=== PATIENT | female | born 1980 | race Caucasian/White ===

== ENCOUNTER 2018-04-29 13:48 | Inpatient (IN) | payer OTHER ==
[2018-04-29] MEDS ORDERED: Lactated Ringer's 1,000 ML IV ONE ×2 (14:07→22:33)
[2018-04-29 14:10] VITALS: BMI 27.4
[2018-04-29] MEDS ORDERED: Lactated Ringer's 1,000 ML IV SCH (14:15)
[2018-04-29 15:12] LABS: BASO # 0.1 K/uL (0.0-0.2); BASO % 0.3 % (0.0-2.0); HEMOGLOBIN 13.8 g/dL (12.0-16.0); LYMPH % 4.5 % (20.0-40.0); MEAN CELL VOLUME 89.9 fl (81.0-99.0); MEAN CORPUSCULAR HEMOGLOBIN 29.6 pg (27.0-31.0); MEAN PLATELET VOLUME 11.3 fl (7.2-11.7); MONO % 4.3 % (0.0-10.0); NEUT # 20.7 K/uL (1.8-7.0); NEUT % 90.9 % (50.0-75.0); PLATELET COUNT 217 K/uL (130-400); RBC 4.66 Mil/uL (3.80-5.20); RED CELL DISTRIBUTION WIDTH 14.1 % (11.5-14.5); WHITE BLOOD COUNT 22.8 K/uL (4.8-10.8)
[2018-04-29] MEDS ORDERED: Oxytocin 30 UNIT 30 UNITS/500 ML BAG IV ONE ×3 (15:52→15:55)
[2018-04-29 15:58] LABS: BANDS 4 % (0-2); LYMPHOCYTE 4 % (20-50); MONOCYTE 6 % (0-10); NEUTROPHIL 86 % (42-75); PLATELET ESTIMATE NORMAL (NORMAL); TOTAL CELLS COUNTED 100
[2018-04-29] MEDS ORDERED: OXYTOCIN/0.9 % NS 20 UNIT/1,000 ML BAG IV SCH ×2 (16:00→18:15)
--- NOTE | 2018-04-29 16:17 | OBADHP ---
Datetime: 04/29/2018 15:45 Presentation-Admit: Vertex FHR - Baseline A Provider: 130 Contraction Comments Provider: 2-5m (external monitor) - q3min (clinically) NICHD Variability Prov Fetus A: Moderate 6-25bpm NICHD Accel Fetus A IP Provider: 15X15 FHR Category Provider Fetus A: Category I NICHD Decel Fetus A IP Provider: None Dilatation, Provider: 6 Effacement, Provider: 75 Station, Provider: -2 Datetime: 04/29/2018 14:00 Admit Comment, IP Provider: 37yo IUP at 41w acc to her OB provider (industrial relations commissioner). She was rboug ht in by industrial relations commissioner who could not make it out to [facility] due to weather. Pt feels CTX selene n. She started with CTX at 4am on Apr 29. Acc to industrial relations commissioner, she was 44-5cm yesterday at 3pm. She progr essed to 7cm when she was checked at 9:17am with SROM and had thick meconium. When she came at 2pm. she c/o CTX pain but diesn't want pain meds (but considering Nitrous oxide) PMH: denies PSH: denies NKA PSoH denies smoking ETOH drugs POBGYNH: Deneis STD ; A: IUP at 41w active laboe of labor ?prolonged active phase PLAN: discussoin with pt, , support person,. and industrial relations commissioner about condition, labor, pain manag ement options, augmentiona, delivery and . Their questoins answered...will start IV, observe labor progress. Pelvic Type - PN: Adequate Extremities - PN: Normal Abdomen - PN: Normal Back - PN: Normal Breast - PN: Not Done Lungs - PN: Normal Heart - PN: Normal Thyroid - PN: Normal Neurologic - PN: Normal HEENT - PN: Normal General - PN: Normal IP Fetus A Comments: Sonogram ceph Membranes, Provider: Raji Carroll, ACOG Physical Exam: SVE 6cm - no fluid noted Pool Provider: Negative IP Hx Assessment: The History has been Reviewed and is Current Vital Signs Provider: Reviewed; Within Normal Limits IP Chief Complaint: Uterine contractions Genitourinary Exam: Normal DTRs - PN: Normal IP Adm Impression: Term, intrauterine ; Active labor; Ruptured Membranes IP Admit Plan: Admit to unit; Initiate labor protocol
[2018-04-29] MEDS ORDERED: Fentanyl/Bupivacaine HCl 250 ML EPI ONE (16:50)
[2018-04-29] MEDS ORDERED: ceFAZolin 2 GM in Sodium Chloride 0.9% 100 ML IVPB ONE (18:15)
--- NOTE | 2018-04-29 18:26 | OBPN ---
Datetime: 04/29/2018 18:15 IP Informed Consent Obtain: Vaginal Delivery; Risks, Benefits and Alternatives Discussed IP Progress Plan: Deliver- Section IP Progress Note Comment: Notified about prolonged deceleration 5min to 70-80's...SVE no change... Pt placed on hands/knees-- recovered. A; Failure of dilation/meconium PLAN: Condition explaioned to pt and her . She understood. Her questions answered. prep f or section Datetime: 04/29/2018 18:05 IP Progress Impression: Reassuring heart rate IP Procedures: Sterile Vag Exam Contraction Comments Provider: q3-5m FHR - Baseline A Provider: 125 NICHD Accel Fetus A IP Provider: 15X15 FHR Category Provider Fetus A: Category I NICHD Variability Prov Fetus A: Moderate 6-25bpm Dilatation, Provider: 6 Effacement, Provider: 80 Station, Provider: -2 NICHD Decel Fetus A IP Provider: None Datetime: 04/29/2018 15:45 Presentation-Admit: Vertex Datetime: 04/29/2018 14:00 Pool Provider: Negative Membranes, Provider: Ruptured IP Fetus A Comments: Sonogram cep Vital Signs Provider: Reviewed; Within Normal Limits
[2018-04-29] MEDS ORDERED: Morphine 1 mg/ml preservative-free Inj(Duramorph) ONE (18:30)
[2018-04-29] MEDS ORDERED: Lidocaine 2% PF (10 ml) Amp ONE ×2 (18:31→18:32)
[2018-04-29] MEDS ORDERED: Naloxone 0.4 mg/ml Inj (Adult) IVP PRN ×2 (19:13→22:33)
[2018-04-29] MEDS ORDERED: Cellulose Hemostat 2X3 Sheet ONE (19:16)
[2018-04-29] MEDS ORDERED: Acetaminophen-Codeine 300/30 mg Tab PO PRN ×2 (19:51→22:33)
[2018-04-29] MEDS ORDERED: Oxycodone/Acetaminophen 5/325 mg Tab PO PRN ×2 (19:51→22:33)
[2018-04-29] MEDS ORDERED: Simethicone 80 mg Chewtab PO SCH (22:00)
[2018-04-29] MEDS ORDERED: Morphine 4 MG/ML VIAL IV PRN (22:33)
[2018-04-30] MEDS: Simethicone 80 mg Chewtab PO SCH ×5 (04:00→22:47)
[2018-04-30 06:40] LABS: HEMOGLOBIN 11.1 g/dL (12.0-16.0); MEAN CELL VOLUME 90.5 fl (81.0-99.0); MEAN CORPUSCULAR HEMOGLOBIN 30.3 pg (27.0-31.0); MEAN CORPUSCULAR HGB CONC 33.5 g/dL (33.0-37.0); RBC 3.66 Mil/uL (3.80-5.20); RED CELL DISTRIBUTION WIDTH 13.6 % (11.5-14.5); WHITE BLOOD COUNT 14.9 K/uL (4.8-10.8)
--- NOTE | 2018-04-30 07:51 | OBDS ---
DELIVERY PERSONNEL Delivery Doctor: Tiffanie Gomez DO Rail Car Unloader: Dusty Peguero RN / Du Hills RN Anesthesiologist: Dano Vegas MD Resident: Saad King MD MATERNAL INFORMATION Delivery Anesthesia: Spinal Medications in Delivery: ancef 2 grams, pitocin 20 units/1000ml Placenta Cultured: No Maternal Complications: None Provider Comments: Pre Op Dx Term preg; failure to dilate/thick meconium Post Op Dx same Procedure: primary LTCS via Pfannenstiel incision Surgeon Dr Gomez Asst Dr Mckeon Shaheed - OB fellow Anesth: Dr Vegas Anesth : epidural FIndings: -live infant delivered from cephalic presentation -moderate meconuim - crying spontaneously - 9,9 -placenta delivreed intact spontaneously -ovaries and tubes WNL grossly -multiple small fibroids noted -She remained stable -all equipment sponges and needles accounted for -EBL 800cc LABOR SUMMARY EDC: 04/22/2018 00:00 No. Babies in Womb: 1 Attempted: No Labor Anesthesia: Intrathecal LABOR INFORMATION Reason for Induction: Not Applicable Onset of Labor: 04/29/2018 13:40 Oxytocin: N/A Group B Beta Strep: Negative Antibiotics # of Doses: 1 Antibiotics Time of Last Dose: 1847 Steroids Given: None Reason Steroids Not Administered: Not Applicable MEMBRANES Membranes Rupture Method: Spontaneous Rupture of Membranes: 04/29/2018 09:17 Length of Rupture (hrs): 9.70 Amniotic Fluid Color: Light Meconium Amniotic Fluid Amount: Small (Annotations: as per Jolly, CM) Amniotic Fluid Odor: None STAGES OF LABOR Stage 3 hrs: 0 Stage 3 min: 1 Total Time in Labor hrs: 5 Total Time in Labor min: 20 CSECTION DELIVERY Primary Indication: Failure of Descent Secondary Indication: Arrest of Descent CSection Urgency: Non Elective CSection Incidence: Primary Labor: Labor Elective: Nonelective CSection Incision: Lower Uterine Transverse Uterine Closure: Double-layer closure BABY A INFORMATION Infant Delivery Date/Time: 04/29/2018 18:59 Method of Delivery: Born in Route : No : N/A Forceps: N/A Vacuum Extraction: N/A Shoulder Dystocia : No SHOULDER DYSTOCIA BABY A Delivery Date/Time: 04/29/2018 18:59 PRESENTATION/POSITION BABY A Presentation: Cephalic Cephalic Presentation: Vertex Breech Presentation: N/A PLACENTA INFORMATION BABY A Placenta Delivery Time : 04/29/2018 19:00 Placenta Method of Delivery: Spontaneous Placenta Status: Delivered SCORES BABY A Heart Rate 1 min: >100 bpm Resp Effort 1 min: Good Cry Reflex Irritability 1 min: Cough or Sneeze or Pulls Away Muscle Tone 1 min: Active Motion Color 1 min: Body [place], Extremities Blue Resuscitation Effort 1 min: Tactile Stimulation SCORE 1 MIN: 9 Heart Rate 5 min: >100 bpm Resp Effort 5 min: Good Cry Reflex Irritability 5 min: Cough or Sneeze or Pulls Away Muscle Tone 5 min: Active Motion Color 5 min: Body [place], Extremities Blue Resuscitation Effort 5 min: N/A; Tactile Stimulation SCORE 5 MIN: 9 INFORMATION BABY A Gestational Age at Delivery: 41.0 Gestational Status: Post-term Infant Outcome : Liveborn Condition : Stable Sex: Male IDENTIFICATION/MEDS BABY A ID Band Number: [id number] ID Band Location: Left Leg; Left Arm WEIGHT/LENGTH BABY A Infant Birthweight (gms): 3645 Weight (lb): 8 Infant Weight (oz): 1 CORD INFORMATION BABY A No. Cord Vessels: 3 Nuchal Cord : N/A Cord Blood Taken: Yes Suction: Mouth; Nose ASSESSMENT BABY A Infant Complications: None Physical Findings at Delivery: Within Normal Limits; [place] Spots Infant Respirations: Appears Normal Bass Fisher/ALS Called : No Care By: Sofia Michael RN Transferred To: Remains with Mother
[2018-04-30] MEDS ORDERED: Multivitamin With Minerals Tab PO SCH (09:00)
[2018-04-30] MEDS: Multivitamin With Minerals Tab PO SCH (14:48)
[2018-05-01] MEDS: Simethicone 80 mg Chewtab PO SCH ×3 (05:08→22:05)
[2018-05-01] MEDS: Multivitamin With Minerals Tab PO SCH (08:09)
--- NOTE | 2018-05-01 14:57 | OBPPN ---
Datetime: 05/01/2018 05:47 PP Pain Prov: Within normal limits PP Nausea Prov: Denies PP Flatus Prov: Yes PP BM Prov: No PP Breasts Prov: Normal PP Heart Prov: Normal PP Lungs Prov: Normal PP Abdomen/Uterus Prov: Normal PP Lochia Prov: Normal PP Vulva/Perineum Prov: Not Done PP CVA Tenderness Prov: Not Done PP Extremities Prov: Normal PP Impression Prov: Normal progression PP Plan Prov: Continue present management PP Progress Note Prov: POD 2 S: 37 yo s/p C-sec on 04/29/18, POD2. No overnight events. Pain tolerated with medication. Ambulating without dizziness/ lightheadedness/palpatations. Exclusively . Lochia < mens es. -flatus/- BM. Denies fever/chills, diarrhea, nausea/vomiting, chest pain, dyspnea, and dizziness. Tolerating regular diet. O: VS: stable GEN: NAD Cardio: S1S2, no murmurs Lungs: clear breath sounds b/l, no wheezing Abdomen: BS+, appropriate tenderness to palpation. Incision not visualized, dressing intact dry an d clean. Uterus is firm and at the level of the umbilicus. Appropriate tenderness EXT: No edema, calves non-tender NEURO/PSYCH: AAOx3, no grossly focal deficits, preserved affect and mood. H/H: aCBC 13.8/41.9 pCBC: 11.1/33.1 Assessment/Plan: 37 yo s/p C-sec on 04/29/18, POD2. Pt remains afebrile, tolerating pain w ith medication. -Anticipating discharge 05/02 - Motrin 600mg po q6, Toradol 30mg Q6 (max 1 dose), Morphine 4mg Q3 (max 2 doses) for pain as per pain scale - Mylicon 80mg Q6H -Encourage and ambulation Case discussed with Dr Zeke King PGY1 Attending addendum: I saw and examined the patient at bedside myself. I reviewed the resident note above and agree wit h findings and management. Anticipate DC home tomorrow. Berta Babcock MD IP PP Procedures: None Vital Signs Provider PP: Reviewed; Within Normal Limits Datetime: 04/30/2018 06:11 PP C/S Incision Prov: Normal PP Progress Prov: Normal
[2018-05-02] MEDS: Simethicone 80 mg Chewtab PO SCH ×2 (04:03→09:01)
--- NOTE | 2018-05-02 10:09 | OP ---
PROCEDURE DATE: 04/29/2018 PREOPERATIVE DIAGNOSES: Intrauterine at term gestation, failure to dilate, thick meconium. POSTOPERATIVE DIAGNOSES: Intrauterine at term gestation, failure to dilate, thick meconium. PROCEDURE: Primary low-transverse section via Pfannenstiel incision. SURGEON: Bienvenido Gomez DO CONSERVATION SCIENCE OFFICER: Dr. Gabrielle Gerber, OB fellow ANESTHESIOLOGIST: Simin Vegas MD ANESTHESIA: Epidural. OPERATIVE FINDINGS: Live delivered from a cephalic presentation. Moderate meconium noted. Infant was crying spontaneously. scores of 9 and 9 given at one and five minutes respectively. Placenta was delivered intact spontaneously. Ovaries and tubes appeared to be within normal limits grossly. Multiple small fibroids were noted on the anterior and posterior ruffin of the uterus; two of them pedunculated anteriorly. She remained hemodynamically stable throughout the procedure. All equipments, sponges and needles accounted for. ESTIMATED BLOOD LOSS: 800 mL. DESCRIPTION OF PROCEDURE: The patient was brought to the operating room. She already had an epidural catheter in place. The catheter was placed in the bladder and noted to be draining clear urine. Compression boots were placed on both lower extremities. She was placed in supine position. She was then draped and prepped in the usual sterile manner. Once adequate anesthesia was obtained, a Pfannenstiel incision was made using a scalpel. Upon identifying the peritoneum, this was nicked in the midline using a scalpel. The incision was then extended bilaterally using curved Vinson Scissors. Inferior aspect of the fascia was grasped using two Christian clamps, tented up and the rectus muscle was both bluntly and sharply dissected using the curved Vinson scissors. The same was done with the superior aspect of the fascia in the midline superiorly. The rectus muscle was bluntly. Peritoneum was then entered bluntly. The incision was then extended superiorly and inferiorly with direct visualization of bladder and intestines. A bladder blade was then inserted. A bladder flap was created by incising peritoneum on the uterus above the bladder line and then extending bilaterally using Metzenbaum scissors. The bladder flap was created digitally. A low-transverse incision was made using the scalpel. Upon entering the uterus, moderate meconium was noted. This incision was then extended bilaterally using bandage scissors . The 's head was delivered as atraumatically as possible. The remainder of the infant then was delivered as atraumatically as possible. Loose cord was noted around the body. Infant was crying spontaneously and handed to the urology surgeon in attendance. Cord bloods were obtained. Placenta was delivered intact spontaneously. Uterus was then exteriorized and cleared of debris and clots. Multiple small fibroids were noted. There were two pedunculated fibroids noted in the anterior part of the uterus. The lower uterine segment was identified intact using two Allis clamps and two T clamps. Good contracture of the uterus was noted. An 0 Vicryl suture was used to close the first layer of the uterus in an interlocking fashion. Second layer of the uterus was closed using 0 Vicryl suture imbricating the first layer. Good hemostasis was assured. The pedunculated fibroids were noted to have some bleeding. Hemostasis was assured using electrocautery as well as Surgicel which was placed in the area. The uterus was placed back into the peritoneal cavity gently. The lower uterine segment was noted to have good hemostasis. Fibroids were noted to have hemostasis. All equipments were removed and accounted for. An 0 Vicryl suture was used to approximate the peritoneum in a running fashion. Rectus muscle was noted to have good hemostasis and was approximated in the midline using a running 0 Vicryl suture. An 0 Vicryl suture was used to close that fascial layer in a running fashion. Irrigation was performed. Hemostasis was assured using electrocautery. A 3-0 Vicryl suture was used to approximate the skin. Dermabond, Steri-Strips and pressure bandages were applied. She tolerated the procedure well and was transferred to the recovery room in stable condition. All equipments, sponges and needles accounted for. Suleman Gomez DO
--- NOTE | 2018-05-02 11:08 | OBPPN ---
Datetime: 05/02/2018 06:23 PP Pain Prov: Within normal limits PP Nausea Prov: Denies PP Flatus Prov: Yes PP BM Prov: Yes PP Breasts Prov: Not Done PP Heart Prov: Normal PP Lungs Prov: Normal PP Abdomen/Uterus Prov: Normal PP Lochia Prov: Normal PP Vulva/Perineum Prov: Normal PP CVA Tenderness Prov: Normal PP Extremities Prov: Normal PP C/S Incision Prov: Not Applicable PP Progress Prov: Normal PP Impression Prov: Normal progression PP Plan Prov: Continue present management PP Progress Note Prov: POD 3 S: 37 yo s/p C-sec on 04/29/18, POD3. No overnight events. Pain tolerated with medication. Ambulating without dizziness/ lightheadedness/palpitations. and bottle feeding. Lochia < menses. + flatus/ + BM. Admits to left hip/lower extremity pain when walking but denies fever/chil ls, diarrhea, nausea/vomiting, chest pain, dyspnea, and dizziness. Tolerating regular diet. O: VS: stable GEN: NAD Cardio: S1S2, no murmurs Lungs: clear breath sounds b/l, no wheezing Abdomen: BS+, appropriate tenderness to palpation. Incision not visualized, dressing intact dry an d clean. Uterus is firm and at the level of the umbilicus. Appropriate tenderness EXT: No edema, calves non-tender NEURO/PSYCH: AAOx3, no grossly focal deficits, preserved affect and mood. H/H: aCBC 13.8/41.9 pCBC: 11.1/33.1 Assessment/Plan: 37 yo s/p C-sec on 04/29/18, POD3. Pt remains afebrile, tolerating pain wi th medication. -Discharge today 05/02 -Percocet 5/325mg q4 and Motrin 600mg po q6 for pain as per pain scale -Colace 100mg BID -Ferrous Sulfate 325mg daily -Encourage and ambulation Tamra Jay PGY1 Patient was seen with the resident I agree with the note IP PP Procedures: None Vital Signs Provider PP: Reviewed; Within Normal Limits
[2018-05-02] MEDS: Multivitamin With Minerals Tab PO SCH (14:37)
[2018-05-02 19:44] VITALS: BP 109/73; PULSE 61; RESP 20; TEMP 98.1; O2SAT 99
== END 2018-05-02 14:30 | disposition home or self-care (01) | DRG 371 ==
LOC: H.EROB2 13:48 → H.L&D 14:07 → H.OB/GYN 22:10
PROVIDERS: ADMIT Obstetrics & Gynecology; ATTEND Obstetrics & Gynecology
PROC: 10D00Z1 Extraction of Products of Conception, Low, Open Approach (ICD-10-PCS; principal; 2018-04-29)
PROC: 4A1HXCZ Monitoring of Products of Conception, Cardiac Rate, External Approach (ICD-10-PCS; 2018-04-29)
DX: O76 Abnormality in fetal heart rate and rhythm complicating labor and delivery (principal); Z37.0 Single live birth; O77.0 Labor and delivery complicated by meconium in amniotic fluid; O63.1 Prolonged second stage (of labor); O62.1 Secondary uterine inertia; O32.4XX0 Maternal care for high head at term, not applicable or unspecified; O34.13 Maternal care for benign tumor of corpus uteri, third trimester; Z3A.41 41 weeks gestation of pregnancy; O48.0 Post-term pregnancy